=== PATIENT | female | born 1980 | race Caucasian/White ===

== ENCOUNTER 2021-12-06 08:00 | Inpatient (IN) | payer OTHER ==
[~2021-12-06 08:00] MED LIST: DEXAMETHASONE SOD PHOSPHATE 4 MG/ML 1 ML VIAL IV ONE; LIDOCAINE 1% (10MG/ML) FOR IV START INTRADERMA PRN; ONDANSETRON 4 MG/2 ML VIAL IVP ONE; SCOPOLAMINE 1 MG/72 HR PATCH TRANSDERM ONE; fentaNYL (PF) 50 MCG/ML 2 ML AMP IV PRN
--- NOTE | 2021-12-06 09:30 | P.GSHP ---
History of Present Illness H&P Date: 12/06/21 CHIEF COMPLAINT: Panniculitis HISTORY OF PRESENT ILLNESS: Chrissy Walker is a 41-year-old female who comes in with 20 year history from panniculitis. She has severe rash in the summer from the rolls of her skin. Her highest weight is 236 pounds. Lowest weight is 120. She had sleeve gastrectomy in March 2019 at [facility]. She is 3 years out. She lives in [place]. She has not followed up with her bariatric provider in over 2 years. She presents for panniculectomy. At height of 5 feet 1.5 inches, her ideal body weight is 131 pounds. Her highest weight is 236 pounds, body mass index 44.0. Lowest weight is 120. She comes in 134 pounds. Her body mass index is 25.0. She is 3 pounds overweight. Lifetime weight loss of 102 pounds. Percent excess lifetime weight loss of 97%. PAST MEDICAL HISTORY: 1. Morbid obesity due to excess calories 2. Body mass index 44.0 3. Osteoarthritis 4. Gastroesophageal reflux disease PAST SURGICAL HISTORY: 1. Carpal tunnel surgery 2. Sleeve gastrectomy, [facility] 2018 HOME MEDICATIONS: Home Medications Medication Instructions Recorded Confirmed Hydrocodone/Acetaminophen 7.5 mg PO Q6HR PRN 09/22/21 09/22/21 [Hydrocodone/Acetaminophen 7.5-325] Omeprazole 20 mg PO BID 09/22/21 09/22/21 ALLERGIES: SOCIAL HISTORY: Past tobacco use. FAMILY HISTORY: No family history of ulcerative colitis disease or Crohn's disease. Family history of morbid obesity. No lupus in the family. No reports of stomach or esophageal cancer. REVIEW OF ORGAN SYSTEMS: CONSTITUTIONAL: At height of 5 feet 1.5 inches, her ideal body weight is 131 pounds. Her highest weight is 236 pounds, body mass index 44.0. Lowest weight is 120. She comes in 134 pounds. Her body mass index is 25.0. She is 3 pounds overweight. Lifetime weight loss of 102 pounds. Percent excess lifetime weight loss of 97%. HEENT: Denies any active troubles with vision or hearing. ENDOCRINE: Denies diabetes. Denies hypothyroidism. CARDIOVASCULAR: Denies past reports of palpitations or heart attacks or chest pain. RESPIRATORY: Denies daytime somnolence and snores. GASTROINTESTINAL: Denies any bright red blood per rectum. No diarrhea. No constipation. Has gastroesophageal reflux disease. GENITOURINARY: Denies bladder urgency. No recent blood in urine MUSCULOSKELETAL: Has lower back pain and joint pain. NEURO: Denies migraines. No seizure disorders. PSYCH: Denies depression. No suicidal ideation. RHEUMATOLOGIC: No lupus. No rheumatoid arthritis. HEMATOLOGIC: Denies any abnormal bleeding or bruising. Denies past history of DVTs. SKIN: No rash. No skin cancer. PHYSICAL EXAM: VITAL SIGNS: Height 5 foot 1.5 inches, weight 134 pounds. BMI 25.0 GENERAL: Well-developed in no acute distress. HEENT: No scleral icterus. Extraocular movements grossly intact. Hears conversational speech. No nasal drainage. NECK: Supple without lymphadenopathy. CHEST: Nonlabored respirations with equal bilateral excursions. CARDIOVASCULAR: Regular rate and regular rhythm. Distal 2+ pulses. ABDOMEN: Obese, soft, nontender, nondistended. Has over 6-cm over pubis with mild hyperemia. Grade III panniculus with central adiposity MUSCULOSKELETAL: No clubbing, cyanosis. NEURO: No focal or lateralizing signs. Cranial nerves 2 through 12 grossly within normal limits. PSYCH: Appropriate affect. Alert and oriented to person, place and time. SKIN: Good skin turgor. Well perfused. ASSESSMENT: 1. Morbid obesity due to excess calories 2. Body mass index 44.0 to 25.0 3. Osteoarthritis 4. Gastroesophageal reflux disease 5. Panniculitis 6. Central adiposity 7. Tobacco cessation PLAN: 1. Panniculectomy reviewed including umbilcus removal described. 2. Strict nicotine avoidance including secondhand exposure perioperative including postoperative described to decrease risk of wound infection and Past Medical History Past Medical History: GERD/Reflux, Osteoarthritis (OA) Additional Past Medical History / Comment(s): left shoulder arthritis and back arthritis History of Any Multi-Drug Resistant Organisms: None Reported Past Surgical History: Appendectomy, Bariatric Surgery, Section, Cholecystectomy, Orthopedic Surgery, Tubal Ligation, Uterine Ablation Additional Past Surgical History / Comment(s): carpal tunnel surgery right wrist, left shoulder surgery. gastric sleeve [email or web address]@ [facility] Past Anesthesia/Blood Transfusion Reactions: Postoperative Nausea & Vomiting (PONV) Smoking Status: Former smoker - Past Family History Mother Family Medical History: Hypertension Additional Family Medical History / Comment(s): border line diabetic Father Additional Family Medical History / Comment(s): back problems Medications and Allergies Home Medications Medication Instructions Recorded Confirmed Type Hydrocodone/Acetaminophen 7.5 mg PO Q6HR PRN 09/22/21 12/01/21 History [Hydrocodone/Acetaminophen 7.5-325] Omeprazole 20 mg PO BID 09/22/21 12/01/21 History Bariatric Advantage 1 can PO W/BRKFST 10/27/21 12/01/21 History Bariatric Fusion 2 tab PO DAILY 12/01/21 12/01/21 History Allergies Allergy/AdvReac Type Severity Reaction Status Date / Time morphine Allergy Mild Itching Verified 12/01/21 12:30
[2021-12-06] MEDS ORDERED: GABAPENTIN 300 MG CAP PO PRN (09:31)
[2021-12-06] MEDS ORDERED: SCOPOLAMINE 1 MG/72 HR PATCH TRANSDERM PRN (09:31)
[2021-12-06] MEDS ORDERED: ACETAMINOPHEN TAB 500 MG TAB PO PRN (09:31)
[2021-12-06] MEDS: LACTATED RINGERS 1,000 ML IV SCH (11:28)
[2021-12-06] MEDS ORDERED: MIDAZOLAM 2 MG/2 ML VIAL ONE (11:53)
[2021-12-06] MEDS ORDERED: ePHEDrine 50 MG/ML 1 ML VIAL ONE (11:53)
[2021-12-06] MEDS ORDERED: PROPOFOL 10 MG/ML 20 ML VIAL IV ONE (11:53)
[2021-12-06] MEDS ORDERED: LIDOCAINE 2% INJ 20 MG/ML (2 ML VIAL) ONE (11:53)
[2021-12-06] MEDS ORDERED: SUCCINYLCHOLINE CHLORIDE 100 MG/5 ML SYR IV ONE (11:53)
[2021-12-06] MEDS ORDERED: LIDOCAINE 4% LTA KIT (4 ML) TOPICAL ONE (11:53)
[2021-12-06] MEDS ORDERED: HYDROmorphone (PF) 1 MG/ML ONE (11:53)
[2021-12-06] MEDS ORDERED: GLYCOPYRROLATE 0.2 MG/ML 2 ML VIAL ONE (11:53)
[2021-12-06] MEDS ORDERED: fentaNYL (PF) 50 MCG/ML 2 ML AMP ONE (11:53)
[2021-12-06] MEDS ORDERED: ROCURONIUM 10 MG/ML (5 ML VIAL) IV ONE (11:53)
[2021-12-06] MEDS ORDERED: NEOSTIGMINE 1 MG/ML 10 ML VIAL ONE (11:53)
[2021-12-06 11:57] LABS: Basophils # (A) 0.1 k/uL (0-0.2); Basophils % (A) 1 %; Eosinophils # (A) 0.3 k/uL (0-0.7); Eosinophils % (A) 4 %; HCT 38.7 % (34.0-46.0); HGB 12.6 gm/dL (11.4-16.0); Lymphocytes # (A) 2.7 k/uL (1.0-4.8); Lymphocytes % (A) 43 %; MCH 31.5 pg (25.0-35.0); MCHC 32.6 g/dL (31.0-37.0); MCV 96.5 fL (80.0-100.0); Mean Platelet Volume 8.3; Monocytes # (A) 0.4 k/uL (0-1.0); Monocytes % (A) 6 %; Neutrophils # (A) 2.8 k/uL (1.3-7.7); Neutrophils % (A) 44 %; Platelet Count 184 k/uL (150-450); RBC 4.02 m/uL (3.80-5.40); RDW 12.2 % (11.5-15.5); WBC 6.3 k/uL (3.8-10.6)
[2021-12-06 12:04] LABS: ALT 17 U/L (4-34); AST 20 U/L (14-36); African American GFR (CKD) >90 (>60 ml/min/1.73 sqM); Albumin 3.7 g/dL (3.5-5.0); Alkaline Phosphatase 58 U/L (38-126); Anion Gap 3 mmol/L; Blood Urea Nitrogen 15 mg/dL (7-17); Calcium 8.6 mg/dL (8.4-10.2); Carbon Dioxide 29 mmol/L (22-30); Chloride 104 mmol/L (98-107); Glucose 90 mg/dL (74-99); Non-African American GFR(CKD) >90 (>60 ml/min/1.73 sqM); Potassium 4.1 mmol/L (3.5-5.1); Sodium 136 mmol/L (137-145); Total Bilirubin 0.4 mg/dL (0.2-1.3); Total Protein 6.3 g/dL (6.3-8.2)
[2021-12-06] MEDS ORDERED: LACTATED RINGERS 1,000 ML IV ONE (13:16)
[2021-12-06] MEDS ORDERED: TRIMETHOBENZAMIDE 100 MG/ML 2 ML VIAL IM PRN ×2 (15:35)
[2021-12-06] MEDS ORDERED: ONDANSETRON 4 MG/2 ML VIAL IVP PRN (15:35)
[2021-12-06] MEDS ORDERED: NALOXONE 0.4 MG/ML 1 ML VIAL IV PRN (15:35)
[2021-12-06] MEDS ORDERED: HYDROmorphone 1 MG/ML 1 ML SYRINGE IVP PRN (15:36)
[2021-12-06] MEDS ORDERED: fentaNYL PCA 500 MCG/50 ML BAG IV PRN (15:38)
--- NOTE | 2021-12-06 16:33 | P.OP ---
Date of Procedure: 12/06/21 Description of Procedure: SURGEON: WILLIAM BRANTLEY MD PREOPERATIVE DIAGNOSES: 1. Chronic panniculitis recalcitrant to medical therapy 2. Adiposis panniculus POSTOPERATIVE DIAGNOSES: 1. Chronic panniculitis recalcitrant to medical therapy 2. Adiposis panniculus with initial reducible ventral hernia 10 cm x 26 cm OPERATION: 1. Panniculectomy, 3.26 pounds 2. Abdominal wall reconstruction with myocutaneous bilateral flap advancement for ventral hernia 10 cm x 26 cm ANESTHESIA: General ESTIMATED BLOOD LOSS: 500 mL SPECIMENS REMOVED: Pannus 3.26 pounds COMPLICATIONS: None. CONDITION: Stable. DRAINS: Two #19 Delta drains below abdominal flap extending through the pubis. OPERATIVE FINDINGS: 1. Pannus weighing 3.26 pounds, excised. 2. Abdominal ventral hernia of Silvano 26 cm along the midline repaired primarily using fascial imbrication. INDICATIONS: The patient is a 41-year-old female status post sleeve gastrectomy 3 years ago. She comes in panniculitis. She reports pulling sensation along the lower back from the pannus. She has troubles with grooming and hygiene as a res ult of his pannus. Her pannus interferes with activities of daily living including dressing, bathing, and hygiene. She presents for panniculectomy. Benefits and risks of the procedure including bleeding, infection, cosmetic deformity, abdominal seromas, placement of drains, risk of flap failure were described at length. Informed consent was obtained. DESCRIPTION: In the preanesthesia care unit the patient was marked with an indelible marker and was given lovenox subcutaneously. The patient was brought into the operating room and laid in supine position. After general induction, a Ho catheter was placed. The abdomen was then prepped and draped in standard sterile fashion using ChloraPrep. The skin was prepped as far laterally to the back, inferiorly to the upper thighs and superiorly to above the chest. A timeout protocol was confirmed with the surgical team regarding patient's name, procedure to be performed, including preoperative medications. He had received Ancef IV antibiotics. Once the time-out protocol was confirmed with the surgical team, the patient was re-marked with indelible marker whereby the midline of the xiphoid to the mons pubis was marked. The anterior/superior iliac spine along the bilateral hips was also marked. At 8 cm above the pubis commissure a transverse incision was made for the inferior portion of the flap. Using a #10 blade, the incision was taken from the midline laterally to above the anterior/superior iliac spine, initially on the left side of the patient and then on the right side of the patient. Electro-Bovie cautery was used to control for hemostasis. The dissection was taken down to the level of the fascia. Landmarks used were the xiphoid process as well as the bilateral costal margins for the superior margin. Care was taken to avoid any creation of dog ears during the dissection. Once hemostasis was checked, a large ventral hernia fascial defect of 10 x 26 cm was identified unrelated to previous bariatric procedure. During this dissection, the umbilicus was truncated at its fascial insertion. The umbilicus fascial excision was oversewn using #2 Ethibond. Bilateral myocutaneous flap advancement was performed to close the large defect of 10 x 26 cm using the rectus muscle. After the muscular flaps were exposed, the midline was re-marked again from the xiphoid to the pubis commissure. Fascial imbrications x 3 were completed with primary repair reinforcement of the bilateral myocutaneous flap advancement. Starting from the xiphoid process, the rectus muscle was overlapped in the bilateral myocutaneous flap advancement using #2 Ethibond. The ventral hernia defect was completely repaired and closed. Hemostasis was once again checked with electro-Bovie cautery and all defects were addressed. Attention was now brought to closure of the flap. Using stainless steel skin volodymyr, the midline was once again marked of the upper flap as well as the pubic commissure. The patient was placed in a flexed position of approximately 20 degrees at the hips. The pannus was extended inferiorly to the feet. The upper flap was created once the excess skin was excised. Again care was taken to avoid any dog ears along the lateral aspect of the incisions. Once excised, the pannus was weighed at 3.26 pounds pounds. The upper and lower flaps were reapproximated at the midline and then laterally to the skin with skin volodymyr. Once reapproximated, the skin was closed in layers using 0 Vicryl for the superficial fascial system followed by running 3-0 Monocryl for the deep dermis in a running subcuticular fashion. Prior to skin closure, two round #19 Delta drains were placed underneath the flap and brought out just inferior to the incision along the pubis. Drain stitch using 2-0 nylon was placed. Once the incision was closed, bulb suction was attached. Hemostasis was checked. At the end of the procedure, the needle, sponge and instrument count was verified correct. The skin was cleansed with hydrogen peroxide. Exofin tape including adhesive was placed along the length of the incision. Optifoam dressing was also placed over the incision and over the MYRNA sites. The patient was then transferred to a hospital bed in a beach chair position. An abdominal binder was placed and marked. The patient was taken to the postanesthesia care unit in stable condition, awake and extubated.
[2021-12-06] MEDS: DEXTROSE 5%-0.9% NACL 1,000 ML IV SCH ×2 (16:45→22:23)
[2021-12-06] MEDS: ACETAMINOPHEN ORAL SUSP (PEDS) 3,840 MG/120 ML BOTTLE PO SCH ×2 (18:23→23:29)
[2021-12-06] MEDS: SIMETHICONE 40 MG/0.6 ML DROPS 2,000 MG/30 ML BOTTLE PO SCH ×2 (18:24→21:32)
[2021-12-07] MEDS: LACTATED RINGERS 1,000 ML IV SCH ×2 (01:56→23:53)
[2021-12-07] MEDS: ACETAMINOPHEN ORAL SUSP (PEDS) 3,840 MG/120 ML BOTTLE PO SCH ×4 (05:21→23:30)
[2021-12-07] MEDS: PANTOPRAZOLE 40 MG TABLET PO SCH (08:54)
[2021-12-07] MEDS: HYDROcodone/APAP 7.5-325MG 1 EACH TAB PO PRN ×3 (08:54→21:34)
[2021-12-07] MEDS: ENOXAPARIN 30 MG/0.3 ML SYRINGE SQ SCH (08:55)
[2021-12-07] MEDS: SIMETHICONE 40 MG/0.6 ML DROPS 2,000 MG/30 ML BOTTLE PO SCH ×4 (08:58→21:34)
[2021-12-07] MEDS ORDERED: PANTOPRAZOLE 40 MG/10 ML VIAL IV SCH (09:00)
[2021-12-07 09:12] LABS: Basophils # (A) 0.09 X 10*3/uL (0.00-0.10); Basophils % (A) 0.8 %; Eosinophils # (A) 0.41 X 10*3/uL (0.04-0.35); Eosinophils % (A) 3.6 %; HCT 30.8 % (37.2-46.3); HGB 9.9 g/dL (12.0-15.0); Immature Grans, Automated 0.3 %; Lymphocytes # (A) 2.62 X 10*3/uL (0.90-5.00); Lymphocytes % (A) 23.2 %; MCH 30.5 pg (27.0-32.0); MCHC 32.1 g/dL (32.0-37.0); MCV 94.8 fL (80.0-97.0); Mean Platelet Volume 11.1 fL (9.5-12.2); Monocytes # (A) 0.97 X 10*3/uL (0.20-1.00); Monocytes % (A) 8.6 %; NRBC Per 100 WBC 0 /100 WBCS (0.0-0.0); Neutrophils # (A) 7.17 X 10*3/uL (1.80-7.70); Neutrophils % (A) 63.5 %; Platelet Count 199 X 10*3/uL (140-440); RBC 3.25 X 10*6/uL (4.10-5.20); RDW 12.8 % (11.5-14.5); WBC 11.29 X 10*3/uL (4.50-10.00)
[2021-12-07 09:32] LABS: Magnesium 1.9 mg/dL (1.5-2.4)
[2021-12-07 09:45] LABS: African American GFR (CKD) 131.4 (60.0-200.0); Anion Gap 9.5 mmol/L (10.00-18.00); Blood Urea Nitrogen 10.2 mg/dL (9.0-27.0); Calcium 8.5 mg/dL (8.7-10.3); Carbon Dioxide 25.4 mmol/L (20.0-27.5); Non-African American GFR(CKD) 113.4 (60.0-200.0); Phosphorus 3.7 mg/dL (2.4-5.1)
[2021-12-07] MEDS: DEXTROSE 5%-0.9% NACL 1,000 ML IV SCH (09:50)
--- NOTE | 2021-12-07 14:11 | P.PN ---
Subjective Progress Note Date: 12/07/21 CHIEF COMPLAINT: Chronic panniculitis HISTORY OF PRESENT ILLNESS: Patient is status post panniculectomy and Abdominal wall reconstruction with myocutaneous bilateral flap advancement for ventral hernia . Last night patient reports that she was having pain. She did not want to use the [employer] pump and wanted to take her [place] from home. Apparently 2 nights they were unable to start the [place]. [place] was started this morning. Initially after taking the [place] patient reports that her pain was better controlled. However during the afternoon patient reports that her pain had worsened and she required to restart the [employer]INE[employer] pump. She also reports having nausea. She is having flatus. She has been up and ambulating. Afebrile. WBC is 11.29 Hgb 12.6 down to 9.9 platelets 199 sodium is 142 potassium is 4.0 creatinine 0.6 magnesium 1.9 phosphorus 3.7. MYRNA drain A with [address] [facility] output and drain B 225 mL output. PHYSICAL EXAM: VITAL SIGNS: Reviewed GENERAL: Well-developed in no acute distress. HEENT: No sclera icterus. Extraocular movements grossly intact. Moist buccal mucosa. Head is atraumatic, normocephalic. Hears conversational speech. No nasal drainage. NECK: Supple without lymphadenopathy. CHEST: Non-labored respirations and equal bilateral excursions. CARDIOVASCULAR: Palpable 2+ radial pulses. ABDOMEN: Soft. Incisional dressing clean dry and intact. Abdominal binder in place. 2 MYRNA drains with sanguinous output MUSCULOSKELETAL: No clubbing or cyanosis. NEUROLOGIC: No focal or lateralizing signs. Cranial nerves II through XII grossly intact. PSYCH: Appropriate affect. Alert and oriented to person, place and time. SKIN: Well perfused. Good skin turgor. ASSESSMENT: 1. Chronic panniculitis recalcitrant to medical therapy 2. Adiposis panniculus with initial reducible ventral hernia PLAN: -Continue pain management -Continue regular diet -Continue antiemetics -Encourage patient to ambulate -Encourage patient to use incentive spirometer -Anticipate discharge home tomorrow Physician Parachute Taper note has been reviewed by physician. Signing provider agrees with the documented findings, assessment, and plan of care. CHIEF COMPLAINT: Panniculitis HISTORY OF PRESENT ILLNESS: The patient is a 41-year-old female status post panniculectomy over 3 pounds including large ventral hernia repair. 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 She is ambulating. ROS: No reports of nausea and vomiting. No bowel movements. No fevers or chill s. No new chest pain. No productive sputum PHYSICAL EXAM: VITAL SIGNS: Reviewed CONSTITUTIONAL: Well developed and in no acute distress. EYES: Conjuctivae without sclera icterus. Extraocular movements grossly intact. HEAD, EARS, NOSE, THROAT: Moist buccal mucosa. Head is atraumatic, normocep halic. Hears conversational speech. No nasal drainage. RESPIRATORY: Non-labored respirations and equal bilateral excursions. CARDIOVASCULAR: Palpable 2+ radial pulses. ABDOMEN: Abdominal binder repositioned. MYRNA output sanguinous over 500 mL in 24 hours MUSCULOSKELETAL: No gross deformity of the lower extremities noted. No clubbing. No cyanosis. SKIN: Good skin turgor. Well perfused. NEUROLOGIC: Cranial nerves II through XII grossly intact. No focal or lateralizing signs. PSYCH: Appropriate affect. Alert and oriented to person, place and time. CLINICAL LABS: Reviewed. Hemoglobin down 12.2-9.5. ASSESSMENT: 1. Panniculitis status post panniculectomy 2. Complex ventral hernia PLAN: 1. Recommend adjustment of pain management including scheduled [place]. Narcotics management reviewed where her PCP prescribes her narcotics. 2. Continued hospitalization repeat CBC. 3. Abdominal binder repositioned and tightened to decrease outflow from JPs, which is expected. Objective - Vital Signs Vital signs: Vital Signs Temp 98.3 F 12/07/21 08:00 Pulse 60 12/07/21 08:00 Resp 16 12/07/21 08:00 BP 130/67 12/07/21 08:00 Pulse Ox 100 12/07/21 08:00 FiO2 Intake & Output 12/06/21 12/07/21 12/07/21 18:59 06:59 18:59 Intake Total 1450 Output Total 6181 6620 971 Balance -833 -5338 -370 Weight 64 kg Intake: IV 1450 Output: Drainage 70 385 70 A drain 20 110 30 B drain 50 275 40 Urine 1300 3950 300 Uretheral (Ho) 1600 Estimated Blood Loss 500 - Labs CBC & Chem 7: 12/07/21 06:06 12/07/21 06:06 Labs: Abnormal Lab Results - Last 24 Hours (Table) 12/07/21 12/07/21 Range/Units 06:06 06:06 WBC 11.29 H (4.50-10.00) X 10*3/uL RBC 3.25 L (4.10-5.20) X 10*6/uL Hgb 9.9 L (12.0-15.0) g/dL Hct 30.8 L (37.2-46.3) % Eosinophils # 0.41 H (0.04-0.35) X 10*3/uL Anion Gap 9.50 L (10.00-18.00) mmol/L Calcium 8.5 L (8.7-10.3) mg/dL
[2021-12-07] MEDS ORDERED: SODIUM CHLORIDE 0.9% 1,000 ML IV SCH (19:15)
[2021-12-08] MEDS: HYDROcodone/APAP 7.5-325MG 1 EACH TAB PO PRN ×3 (02:35→13:22)
[2021-12-08] MEDS: ACETAMINOPHEN ORAL SUSP (PEDS) 3,840 MG/120 ML BOTTLE PO SCH ×2 (06:09→12:04)
[2021-12-08] MEDS: ENOXAPARIN 30 MG/0.3 ML SYRINGE SQ SCH (07:38)
[2021-12-08] MEDS: PANTOPRAZOLE 40 MG TABLET PO SCH (07:38)
[2021-12-08] MEDS: SIMETHICONE 40 MG/0.6 ML DROPS 2,000 MG/30 ML BOTTLE PO SCH ×2 (07:39→12:06)
[2021-12-08 08:08] VITALS: RESP 18
[2021-12-08 09:17] LABS: Basophils # (A) 0.06 X 10*3/uL (0.00-0.10); Basophils % (A) 0.6 %; Eosinophils % (A) 10.5 %; HCT 33.2 % (37.2-46.3); HGB 10.2 g/dL (12.0-15.0); Immature Grans, Automated 0.2 %; Lymphocytes # (A) 3.24 X 10*3/uL (0.90-5.00); Lymphocytes % (A) 34.1 %; MCH 30.1 pg (27.0-32.0); MCHC 30.7 g/dL (32.0-37.0); MCV 97.9 fL (80.0-97.0); Mean Platelet Volume 10.8 fL (9.5-12.2); Monocytes # (A) 0.73 X 10*3/uL (0.20-1.00); Monocytes % (A) 7.7 %; NRBC Per 100 WBC 0 /100 WBCS (0.0-0.0); Neutrophils # (A) 4.45 X 10*3/uL (1.80-7.70); Neutrophils % (A) 46.9 %; Platelet Count 183 X 10*3/uL (140-440); RBC 3.39 X 10*6/uL (4.10-5.20); RDW 12.8 % (11.5-14.5)
--- NOTE | 2021-12-08 12:03 | P.DS ---
Providers Date of admission: 12/06/21 09:51 Expected date of discharge: 12/08/21 Attending physician: Emma Ascencio Consults: 12/06/21 09:30 Consult Physician Routine Consulting Provider: [facility] Consult Reason/Comments: Regional block Do you want consulting provider notified?: Yes [facility] Course: Discharge diagnosis 1. Panniculitis status post panniculectomy 2. Complex ventral hernia Hospital course This is a 41-year-old female with a history of panniculitis. She reports pulling sensation along the lower back from the pannus. She has troubles with grooming and hygiene as a result of his pannus. Her pannus interferes with activities of daily living including dressing, bathing, and hygiene. She is status post panniculectomy and abdominal wall reconstruction with myocutaneous bilateral flap advancement for ventral hernia. Patient tolerated surgery well. Her pain is controlled. She is up and ambulating. She is tolerating diet. She is having flatus. Patient is stable for discharge. Physician Underlay Stitcher note has been reviewed by physician. Signing provider agrees with the documented findings, assessment, and plan of care. Patient Condition at Discharge: Stable Plan - Discharge Summary Discharge Rx Participant: Yes New Discharge Prescriptions: New Simethicone 40 mg/0.6 ml Drops [Mylicon Drops] 40 mg PO QID ml Omeprazole [PriLOSEC] 40 mg PO DAILY #14 cap Acetaminophen Tab [Tylenol Tab] 1,000 mg PO Q6HR PRN #30 tablet PRN Reason: Pain Continue Omeprazole 20 mg PO BID Hydrocodone/Acetaminophen [Hydrocodone/Acetaminophen 7.5-325] 7.5 mg PO Q6HR PRN PRN Reason: pain Bariatric Advantage 1 can PO W/BRKFST Bariatric Fusion 2 tab PO DAILY Discharge Medication List Hydrocodone/Acetaminophen [Hydrocodone/Acetaminophen 7.5-325] 7.5 mg PO Q6HR PRN 09/22/21 [History] Omeprazole 20 mg PO BID 09/22/21 [History] Bariatric Advantage 1 can PO W/BRKFST 10/27/21 [History] Bariatric Fusion 2 tab PO DAILY 12/01/21 [History] Simethicone 40 mg/0.6 ml Drops [Mylicon Drops] 40 mg PO QID ml 12/07/21 [Rx] Acetaminophen Tab [Tylenol Tab] 1,000 mg PO Q6HR PRN #30 tablet 12/08/21 [Rx] Omeprazole [PriLOSEC] 40 mg PO DAILY #14 cap 12/08/21 [Rx] [facility]Ref[place] [facility] [place] [facility] [place] [facility]10[facility]21 9:00 am Patient Instructions/Handouts: *Surgery [facility] - Scopalamine Patch Instructions, Belt Lipectomy (IP), Panniculectomy (GEN) Activity/Diet/Wound Care/Special Instructions: Protein intake over 75 grams daily for optimal recovery. No lifting over 4 pounds in 4 weeks, Jan 29 No bathtub soaks. No shower. No stretching or twisting. Sleep in a recliner. DO NOT REMOVE DRESSINGS. DO NOT REMOVE BINDER. Keep record of MYRNA outputs daily. Discharge Disposition: HOME SELF-CARE
[2021-12-08 14:04] VITALS: BP 117/68; PULSE 74; TEMP 97.7
== END 2021-12-08 14:00 | disposition home or self-care (01) | DRG 572 ==
LOC: 2ORMAIN 09:51 → 4SSUR 14:43
PROVIDERS: ADMIT Surgery Plastic and Reconstructive Surgery; ATTEND Surgery Plastic and Reconstructive Surgery
PROC: 0WUF07Z Supplement Abdominal Wall with Autologous Tissue Substitute, Open Approach (ICD-10-PCS; principal; 2021-12-06 10:55)
PROC: 0JB80ZZ Excision of Abdomen Subcutaneous Tissue and Fascia, Open Approach (ICD-10-PCS; principal; 2021-12-06 10:55)
DX: M79.3 Panniculitis, unspecified (principal); K21.9 Gastro-esophageal reflux disease without esophagitis; M19.012 Primary osteoarthritis, left shoulder; K43.9 Ventral hernia without obstruction or gangrene; M19.09 Primary osteoarthritis, other specified site; R68.89 Other general symptoms and signs; Z86.39 Personal history of other endocrine, nutritional and metabolic disease; Z71.6 Tobacco abuse counseling; Z90.49 Acquired absence of other specified parts of digestive tract; Z98.84 Bariatric surgery status; Z87.891 Personal history of nicotine dependence; Z88.6 Allergy status to analgesic agent; Z79.899 Other long term (current) drug therapy; Z83.49 Family history of other endocrine, nutritional and metabolic diseases
CPT/HCPCS: 80051; 80053; 81025; 82310; 82565; 83735; 84100; 84520; 85025; 86850; 86900; 86901; 93005

== ENCOUNTER → 2021-12-29 | Outpatient (CLI) | payer OTHER ==
[2021-12-29 13:48] VITALS: BP 112/66; PULSE 70; TEMP 97.6; BMI 26.6
--- NOTE | 2021-12-29 13:51 | P.BASOAP ---
Subjective Progress Note Date: 12/29/21 DATE OF SERVICE: 12/29/2021 CHIEF COMPLAINT: Status post panniculectomy HISTORY OF PRESENT ILLNESS: Chrissy Walker is a 41-year-old female status post panniculectomy 12/06/2021. She is 3 weeks out. She reports minimal drain output. At height of 5 feet 1.5 inches, her ideal body weight is 131 pounds. Her highest weight is 236 pounds, body mass index 44.0. Lowest weight is 120. She comes in 143 pounds from 140 pounds, 1 week ago. She has gained 3 pounds in 1 week. Her body mass index is 26.6. She is 12 pounds overweight. Lifetime weight loss of 93 pounds. Percent excess lifetime weight loss of 89 %. PHYSICAL EXAM: VITAL SIGNS: Height 5 foot 1.5 inches, weight 143 pounds. BMI 26.6 Vital Signs Temp 97.6 F 12/29/21 13:42 Pulse 70 12/29/21 13:42 Resp BP 112/66 12/29/21 13:42 Pulse Ox FiO2 GENERAL: Well-developed in no acute distress. HEENT: No scleral icterus. Extraocular movements grossly intact. Hears conversational speech. No nasal drainage. NECK: Supple without lymphadenopathy. CHEST: Nonlabored respirations with equal bilateral excursions. CARDIOVASCULAR: Regular rate and regular rhythm. Distal 2+ pulses. ABDOMEN: Incisions granulating. Skin flaps viable. No infection. MYRNA drain removed. MUSCULOSKELETAL: No clubbing, cyanosis. NEURO: No focal or lateralizing signs. Cranial nerves 2 through 12 grossly within normal limits. PSYCH: Appropriate affect. Alert and oriented to person, place and time. SKIN: Good skin turgor. Well perfused. ASSESSMENT: 1. Morbid obesity due to excess calories 2. Body mass index 44.0 to 26.6 3. Osteoarthritis 4. Gastroesophageal reflux disease 5. Panniculitis 6. Central adiposity 7. Tobacco cessation 8. Status post panniculectomy 3.26 pounds 9. Status post sleeve gastrectomy PLAN: 1. She has minimal drain output. Drain removed. 2. Follow up in 1 week. 3. Recommend binder on at all times except showering. Objective - Vital Signs Vital signs: Vital Signs Temp 97.6 F 12/29/21 13:42 Pulse 70 12/29/21 13:42 Resp BP 112/66 12/29/21 13:42 Pulse Ox FiO2 Intake & Output 12/28/21 12/29/21 12/29/21 18:59 06:59 18:59 Weight 64.864 kg Assessment/Plan Plan: Date: 12/29/21 Initial Weight: Initial BMI: Current Weight: 64.864 kg Current BMI: 26.6 Type of Surgery: Total Volume in Band: Previous Volume: Volume Removed: Volume Added: Band Size:
== END ==
LOC: BARWHC3 13:02
PROVIDERS: ATTEND Surgery Plastic and Reconstructive Surgery
DX: K21.9 Gastro-esophageal reflux disease without esophagitis (principal); E66.01 Morbid (severe) obesity due to excess calories; Z68.26 Body mass index [BMI] 26.0-26.9, adult; M19.90 Unspecified osteoarthritis, unspecified site; M79.3 Panniculitis, unspecified; Z87.891 Personal history of nicotine dependence; Z98.84 Bariatric surgery status; Z88.5 Allergy status to narcotic agent
CPT/HCPCS: 99211

== ENCOUNTER → 2022-01-19 | Outpatient (CLI) | payer OTHER ==
[2022-01-19 09:27] VITALS: BP 111/78; PULSE 74; TEMP 98.1; BMI 26.2
--- NOTE | 2022-01-19 09:34 | P.BASOAP ---
Subjective Progress Note Date: 01/19/22 May return to work 8 weeks postop, February 06. Otherwise, no seroma. All incisions granulated. No hernias. Where abdominal binder at all times including at work. Light duty advise upon return to work. Follow-up as needed. Wear abdominal binder at least for one month. Objective - Vital Signs Vital signs: Vital Signs Temp 98.1 F 01/19/22 09:24 Pulse 74 01/19/22 09:24 Resp BP 111/78 01/19/22 09:24 Pulse Ox FiO2 Intake & Output 01/18/22 01/19/22 01/19/22 18:59 06:59 18:59 Weight 63.957 kg Assessment/Plan Plan: Date: 01/19/22 Initial Weight: 61.008 kg Initial BMI: 25.0 Current Weight: 63.957 kg Current BMI: 26.2 Type of Surgery: Total Volume in Band: Previous Volume: Volume Removed: Volume Added: Band Size:
== END | disposition home or self-care (01) ==
LOC: BARWHC3 09:15
PROVIDERS: ATTEND Surgery Plastic and Reconstructive Surgery
DX: E66.01 Morbid (severe) obesity due to excess calories (principal); Z68.26 Body mass index [BMI] 26.0-26.9, adult
CPT/HCPCS: 99211